=== PATIENT | male | born 1975 | race Hispanic/Latino ===

== ENCOUNTER 2020-11-20 21:17 | Emergency (ER) | payer OTHER ==
[~2020-11-20] VITALS: Ht 170.2 cm; Wt 99.8 kg
[2020-11-20 21:20] VITALS: BP 133/69
[2020-11-20 21:30] VITALS: BP 133/69
[2020-11-20] MEDS ORDERED: LORAZEPAM 2 MG/ML 1 ML VIAL IVP ONE (22:00)
[2020-11-20 22:10] LABS: BASOPHILS % (AUTO) 1.2 % (0.0-5.0); EOSINOPHILS % (AUTO) 2.9 % (0.0-8.0); LYMPHOCYTES % (AUTO) 31.7 % (21.0-51.0); MEAN CORPUSCULAR VOLUME 94.4 fL (79-99); MONOCYTES % (AUTO) 8.7 % (3.0-13.0); NEUTROPHILS % (AUTO) 55.2 % (40.0-77.0); PLATELET COUNT (AUTO) 251 K/uL (130-400); RED BLOOD CELL COUNT(AUTO) 4.45 MIL/uL (4.50-6.20); RED CELL DISTRIBUTION WIDTH 12.3 % (11.0-15.5)
[2020-11-20 22:12] LABS: APPEARANCE,URINE Clear (CLEAR); BILIRUBIN,URINE Negative (NEGATIVE); COLOR,URINE Yellow (YELLOW); GLUCOSE, URINE (UA) Negative (NEGATIVE); KETONES,URINE Trace mg/dL (NEGATIVE); LEUKOCYTE ESTERASE ,URINE Negative (NEGATIVE); NITRATE,URINE Negative (NEGATIVE); OCCULT BLOOD,URINE Negative (NEGATIVE); PH,URINE 6.5 (5.0-8.0); PROTEIN,URINE Negative (NEGATIVE)
[2020-11-20 22:19] LABS: AMPHET/METH SCREEN,URINE NEGATIVE (NEGATIVE); BARBITURATE SCREEN, URINE NEGATIVE (NEGATIVE); BENZODIAZEPINES SCREEN,URINE NEGATIVE (NEGATIVE); CANNABINOID SCREEN,URINE NEGATIVE (NEGATIVE); COCAINE SCREEN,URINE NEGATIVE (NEGATIVE); OPIATE SCREEN,URINE NEGATIVE (NEGATIVE); PHENCYCLIDINE SCREEN,URINE NEGATIVE (NEGATIVE)
[2020-11-20 22:24] LABS: CREATININE 0.8 mg/dL (0.5-1.5); POTASSIUM 4.1 mmol/L (3.5-5.1)
[2020-11-20 22:29] LABS: ALBUMIN 3.6 g/dL (3.5-5.0); BILIRUBIN,TOTAL 0.3 mg/dL (0.2-1.0); TOTAL PROTEIN, SERUM 7.2 g/dL (6.0-8.3)
[2020-11-20 22:35] LABS: B-TYPE NATRIURETIC PEPTIDE 26 pg/mL (0-100)
== END 2020-11-20 23:28 | disposition home or self-care (01) ==
LOC: EDH 21:17
DX: R07.89 Other chest pain (principal); Z90.49 Acquired absence of other specified parts of digestive tract; Z79.899 Other long term (current) drug therapy
CPT/HCPCS: 36415; 71045; 80053; 80305; 81003; 83880; 84484; 85025; 93005; 96374; 99285; J2060

== ENCOUNTER 2022-02-18 08:46 | Inpatient (IN) | payer OTHER ==
[2022-02-18] VITALS (14 sets, daily range): BP systolic 103–143; BP diastolic 52–84
[~2022-02-18] VITALS: Ht 175.3 cm; Wt 102.0 kg
[2022-02-18] MEDS ORDERED: LACTATED RINGERS 1000ML 1,000 ML IV ONE (09:00)
[2022-02-18 09:17] LABS: BASOPHILS % (AUTO) 0.6 % (0.0-5.0); EOSINOPHILS % (AUTO) 1.4 % (0.0-8.0); HEMATOCRIT 45.2 % (42-54); LYMPHOCYTES % (AUTO) 18.4 % (21.0-51.0); MEAN CORPUSCULAR HEMOGLOBIN 33.3 pg (27.0-33.0); MEAN CORPUSCULAR HGB CONC 34.7 g/dL (32.0-36.0); MEAN CORPUSCULAR VOLUME 95.8 fL (79-99); MONOCYTES % (AUTO) 7.1 % (3.0-13.0); NEUTROPHILS % (AUTO) 72.1 % (40.0-77.0); PLATELET COUNT (AUTO) 245 K/uL (130-400); RED BLOOD CELL COUNT(AUTO) 4.72 MIL/uL (4.50-6.20); RED CELL DISTRIBUTION WIDTH 12.2 % (11.0-15.5); WHITE BLOOD COUNT (AUTO) 10.9 K/uL (4.8-10.8)
[2022-02-18 09:36] LABS: ALBUMIN 3.9 g/dL (3.5-5.0); POTASSIUM 3.9 mmol/L (3.5-5.1); TOTAL PROTEIN, SERUM 7.8 g/dL (6.0-8.3)
[2022-02-18] MEDS ORDERED: ONDANSETRON 4MG INJ IVP STA (09:43)
[2022-02-18] MEDS ORDERED: ZOSYN 3.375GM +NS 50ML IV STA (09:43)
[2022-02-18] MEDS ORDERED: MORPHINE 2 MG SYG IVP STA (09:43)
[2022-02-18] MEDS ORDERED: MORPHINE 2 MG SYG IVP PRN (10:30)
[2022-02-18] MEDS ORDERED: KETOROLAC 30MG VIAL (30MG/ML) IVP STA (10:38)
[2022-02-18 10:57] LABS: HEMOGLOBIN A1C 5.8 % (4.0-6.0)
[2022-02-18] MEDS ORDERED: ONDANSETRON 4MG INJ IVP ONE (11:00)
[2022-02-18] MEDS: 0.9%NACL 1000ML 1,000 ML IV SCH ×2 (11:22→20:27)
[2022-02-18] MEDS ORDERED: BUPIVACAINE/PF 0.5% 30ML VIAL ONE (15:03)
[2022-02-18] MEDS ORDERED: MIDAZOLAM HCL 1 MG/ML 2ML VIAL ONE (16:49)
[2022-02-18] MEDS ORDERED: PROPOFOL 10 MG/ML 20ML VIAL IV ONE (16:50)
[2022-02-18] MEDS ORDERED: ONDANSETRON 4MG INJ ONE (16:50)
[2022-02-18] MEDS ORDERED: FENTANYL CITRATE PF 50 MCG/1 ML 5ML AMP IV ONE (16:51)
[2022-02-18] MEDS ORDERED: ROCURONIUM 10MG/1ML SYR 10 MG/ML ML ONE (16:51)
[2022-02-18] MEDS ORDERED: HYDROMORPHONE 1 MG INJ ONE (17:29)
[2022-02-18] MEDS ORDERED: GLYCOPYRROLATE 1 MG/5 ML SYRINGE ONE (18:53)
[2022-02-18] MEDS ORDERED: NEOSTIGMINE 5MG/5ML SYR IV ONE (18:54)
[2022-02-18] MEDS ORDERED: KETOROLAC 30MG VIAL (30MG/ML) ONE (18:54)
[2022-02-18] MEDS: ZOSYN 3.375GM+NS 50ML 50 ML IV SCH (20:27)
[2022-02-18] MEDS: FAMOTIDINE 20MG VIAL IV SCH (20:33)
[2022-02-19] VITALS: BP 110/61
[2022-02-19 04:00] VITALS: BP_SYST 113; BP_SYST 116; BP_DIAS 68; BP_DIAS 72
[2022-02-19] MEDS: ZOSYN 3.375GM+NS 50ML 50 ML IV SCH (04:48)
[2022-02-19 05:37] LABS: BASOPHILS % (AUTO) 0.1 % (0.0-5.0); HEMATOCRIT 38.6 % (42-54); LYMPHOCYTES % (AUTO) 11.6 % (21.0-51.0); MEAN CORPUSCULAR HEMOGLOBIN 32.6 pg (27.0-33.0); MEAN CORPUSCULAR HGB CONC 34.7 g/dL (32.0-36.0); MEAN CORPUSCULAR VOLUME 93.9 fL (79-99); MONOCYTES % (AUTO) 3.9 % (3.0-13.0); NEUTROPHILS % (AUTO) 84.2 % (40.0-77.0); PLATELET COUNT (AUTO) 223 K/uL (130-400); RED BLOOD CELL COUNT(AUTO) 4.11 MIL/uL (4.50-6.20); WHITE BLOOD COUNT (AUTO) 8.8 K/uL (4.8-10.8)
[2022-02-19] MEDS: 0.9%NACL 1000ML 1,000 ML IV SCH (05:44)
[2022-02-19 06:42] LABS: ERYTHROCYTE SEDIMENTATION RATE 14 MM/HR (0-15)
[2022-02-19] MEDS: FAMOTIDINE 20MG VIAL IV SCH (07:53)
== END 2022-02-19 10:40 | disposition home or self-care (01) | DRG 343 ==
LOC: EDH 08:46 → EDHIP 08:47 → 3CH 14:45
PROVIDERS: ADMIT Hospitalist; ATTEND Hospitalist
PROC: 0DTJ4ZZ Resection of Appendix, Percutaneous Endoscopic Approach (ICD-10-PCS; principal; 2022-02-18 17:29)
DX: K35.80 Unspecified acute appendicitis (principal); D17.79 Benign lipomatous neoplasm of other sites; Z20.822 Contact with and (suspected) exposure to COVID-19; K59.00 Constipation, unspecified; Z82.49 Family history of ischemic heart disease and other diseases of the circulatory system
CPT/HCPCS: 36415; 74176; 80053; 83036; 83690; 85025; 85651; 87635; 93005; A4344; G0378; J1170; J1885; J2250; J2405; J2543; J2704; J2710; J3010; J3490; J7030; J7120

== ENCOUNTER 2023-04-18 14:04 | Emergency (ER) | payer OTHER ==
[~2023-04-18] VITALS: Ht 175.3 cm; Wt 102.1 kg
[2023-04-18 14:35] LABS: BASOPHILS # (AUTO) 0.04 K/uL (0.00-0.20); BASOPHILS % (AUTO) 0.7 % (0.0-5.0); EOSINOPHILS # (AUTO) 0.17 K/uL (0.00-0.70); HEMATOCRIT 41.4 % (42-54); IMMATURE GRANULOCYTE ABSOLUTE 0.02 K/uL (0-1); LYMPHOCYTES % (AUTO) 34.8 % (21.0-51.0); MEAN CORPUSCULAR HEMOGLOBIN 33.3 pg (27.0-33.0); MEAN CORPUSCULAR HGB CONC 35.5 g/dL (32.0-36.0); MEAN CORPUSCULAR VOLUME 93.9 fL (79-99); MONOCYTES # (AUTO) 0.5 K/uL (0.1-1.0); MONOCYTES % (AUTO) 9.3 % (3.0-13.0); NEUTROPHILS % (AUTO) 51.8 % (40.0-77.0); PLATELET COUNT (AUTO) 241 K/uL (130-400); RED BLOOD CELL COUNT(AUTO) 4.41 MIL/uL (4.50-6.20); WHITE BLOOD COUNT (AUTO) 5.7 K/uL (4.8-10.8)
[2023-04-18 14:44] LABS: CREATININE 0.9 mg/dL (0.5-1.5); POTASSIUM 3.8 mmol/L (3.5-5.1)
[2023-04-18 14:49] LABS: ALBUMIN 3.7 g/dL (3.5-5.0); BILIRUBIN,TOTAL 0.5 mg/dL (0.2-1.0); TOTAL PROTEIN, SERUM 7.3 g/dL (6.0-8.3)
[2023-04-18 15:02] LABS: B-TYPE NATRIURETIC PEPTIDE 32 pg/mL (0-100)
[2023-04-18] MEDS: LORAZEPAM 2 MG/ML 1 ML VIAL IVP ONE (15:38)
[2023-04-18 15:39] LABS: THYROID STIMULATING HORMONE 3.62 uIU/mL (0.36-3.74)
[2023-04-18] MEDS: ASPIRIN 325MG TAB PO ONE (15:39)
[2023-04-18] MEDS: NITROGLYCERIN 1GM OINT 1 INCH/1GM TD ONE (15:39)
[2023-04-18 16:33] LABS: ADD UA MICROSCOPIC YES; APPEARANCE,URINE CLEAR (CLEAR); BILIRUBIN,URINE NEGATIVE (NEGATIVE); COLOR,URINE LIGHT-YELLOW (YELLOW); GLUCOSE, URINE (UA) NEGATIVE (NEGATIVE); KETONES,URINE NEGATIVE (NEGATIVE); LEUKOCYTE ESTERASE ,URINE NEGATIVE Leu/uL (NEGATIVE); NITRATE,URINE NEGATIVE (NEGATIVE); OCCULT BLOOD,URINE NEGATIVE (NEGATIVE); PH,URINE 7.5 (5.0-8.0); PROTEIN,URINE NEGATIVE (NEGATIVE); UROBILINOGEN,URINE 0.2 mg/dL (0.2-1.0)
[2023-04-18 16:39] LABS: AMPHET/METH SCREEN,URINE NEGATIVE (NEGATIVE); BARBITURATE SCREEN, URINE NEGATIVE (NEGATIVE); BENZODIAZEPINES SCREEN,URINE NEGATIVE (NEGATIVE); CANNABINOID SCREEN,URINE NEGATIVE (NEGATIVE); COCAINE SCREEN,URINE NEGATIVE (NEGATIVE); OPIATE SCREEN,URINE NEGATIVE (NEGATIVE); PHENCYCLIDINE SCREEN,URINE NEGATIVE (NEGATIVE)
[2023-04-18] MEDS ORDERED: NITR0.4T50 SL (16:53)
[2023-04-18] MEDS ORDERED: HYDR50CA50 PO (16:53)
[2023-04-18] MEDS ORDERED: ASPI-1005 PO (16:53)
[2023-04-18 17:03] LABS: WBC,URINE 0-1 /HPF (0-1)
[2023-04-18 17:28] VITALS: BP 138/79; PULSE 94; RESP 16; O2SAT 98
== END 2023-04-18 17:30 | disposition home or self-care (01) ==
LOC: EDH 14:04
DX: I20.89 Other forms of angina pectoris (principal); F41.9 Anxiety disorder, unspecified; Z90.49 Acquired absence of other specified parts of digestive tract; Z79.899 Other long term (current) drug therapy
CPT/HCPCS: 99285; 74176; 96374; 71045; 84443; 83735; 84484; 80053; 83880; 80305; 83690; 85025; 36415; 93005; 81001; J2060; 96372